=== PATIENT | female | born 1995 | race African-American/Black ===

== ENCOUNTER → 2021-02-20 | Outpatient (CLI) | payer OTHER ==
--- NOTE | 2021-02-20 16:52 | REP ---
INDICATION: LT BREAST PAIN,NIPPLE INVERSION, 7 WEEKS GESTATION. Three week history of left breast pain around the areola and occasional left breast nipple inversion. History of a normal previous ultrasound 2017. Negative clinician breast exam. COMPARISON: None. TECHNIQUE: Whole breast left sided sonography performed. FINDINGS: Heterogeneous fibroglandular background echotexture is seen. In the 10 o'clock position of the left breast, 4 cm from the nipple, there is a complex cystic area with overall dimensions of 1.7 x 0.7 x 0.9 cm. There is enhanced through transmission. No acoustic shadowing. No other significant sonographic finding. IMPRESSION: BI-RADS category 3 probably benign findings. Complex cystic lesion noted left breast 10 o'clock position 1.7 cm in greatest diameter. Recommend follow-up left breast sonography in 3-4 months. This patient's estimated Tyrer-Cuzick lifetime risk assessment for breast cancer is 12.1%. <Electronically signed by True Bruce > 02/20/21 [id number]
== END ==
LOC: M WHC 15:38
PROVIDERS: ATTEND Nurse Practitioner Primary Care
DX: N60.02 Solitary cyst of left breast (principal); Z3A.01 Less than 8 weeks gestation of pregnancy; N64.4 Mastodynia

== ENCOUNTER → 2021-07-07 | Outpatient (CLI) | payer OTHER ==
--- NOTE | 2021-07-07 13:50 | REP ---
INDICATION: 4 MON F/U LEFT BREAST. Previous ultrasound showed a 1.7 cm complex cystic area in the 10 o'clock position of the left breast, 4 cm from the nipple. Four month follow-up. Patient is 27 weeks gestation. COMPARISON: Comparison sonography February 20, 2021. TECHNIQUE: Targeted left breast ultrasound is repeated. FINDINGS: Mildly heterogeneous fibroglandular background echotexture is seen. The previously noted area is again seen slightly decreased in size, 1.4 x 0.8 x 1.4 cm. This is again noted to be located approximately 4 cm from the nipple. The area has a low elastography number, 17.4 K PA. IMPRESSION: Stable BI-RADS category 3 probably benign findings. Six-month follow-up sonography suggested. <Electronically signed by True Bruce > 07/07/21 [id number]
== END ==
LOC: M WHC 10:13
PROVIDERS: ATTEND Family Medicine
DX: N60.02 Solitary cyst of left breast (principal); Z3A.27 27 weeks gestation of pregnancy

== ENCOUNTER → 2021-08-22 | Outpatient (CLI) | payer OTHER ==
--- NOTE | 2021-08-22 15:52 | REP ---
INDICATION: PREG 32W4D, GROWTH - MORBID OBESITY COMPARISON: None. TECHNIQUE: Transabdominal obstetrical ultrasound with color Doppler evaluation. FINDINGS: Examination demonstrates a single live intrauterine in cephalic presentation. motion is identified by technologist. Placenta is noted posteriorly and grade 2 without evidence for placenta previa or abruption. Amniotic fluid volume is low normal range. Cervix appears closed. Selected gestational age: 33 weeks 5 days with MAEVE 10/05/2021. Gestational age by current measurements 33 weeks 0 days with MAEVE 10/10/2021. FHR equals 139 beats per minute. BPD: 8.2 cm at 32 weeks 5 days HC: 30.7 cm at 34 weeks 1 day AC: 29.3 cm at 33 weeks 2 days FL: 6.4 cm at 33 weeks 0 days HL: 5.5 cm at 32 weeks 0 days HC/AC: 1.05 Estimated weight 2148 grams (49thpercentile). ALIYA: 6.4 cm (8.2-24.7) Umbilical artery SD ratio: 3.89 (1.75-3.71) Limited anatomical assessment demonstrates no obvious abnormality. IMPRESSION: 1. Single live intrauterine in cephalic presentation demonstrating appropriate interval growth. 2. Amniotic fluid volume is below normal range and umbilical artery SD ratio mildly elevated. <Electronically signed by Doug Raines > 08/22/21 [id number]
== END ==
LOC: M RAD 10:23
PROVIDERS: ATTEND Advanced Practice Midwife
DX: O99.213 Obesity complicating pregnancy, third trimester (principal); Z3A.32 32 weeks gestation of pregnancy

== ENCOUNTER → 2021-08-25 | Outpatient (CLI) | payer OTHER ==
--- NOTE | 2021-08-25 18:00 | REP ---
INDICATION: MORBID OBESITY WITH REDNESS, PAIN, MILD HEAT COMPARISON: None. TECHNIQUE: Real time compression and duplex Doppler interrogation of the left lower extremity deep venous system is performed, including the right common femoral vein.Compression of the left peroneal and posterior tibial veins is performed. FINDINGS: The left common femoral, superficial femoral and popliteal veins are fully compressible with transducer pressure and demonstrate normal spontaneous and phasic flow, without evidence of deep venous thrombosis.The right common femoral vein demonstrates no thrombus.The visualized left peroneal and posterior tibial veins demonstrate no thrombus. IMPRESSION: No evidence of deep venous thrombosis of the left lower extremity femoral popliteal venous system.No thrombus in the visualized left peroneal and posterior tibial veins. <Electronically signed by Low Hanson > 08/25/21 [id number]
== END ==
LOC: M RAD 16:47
PROVIDERS: ATTEND Obstetrics & Gynecology
DX: Z34.83 Encounter for supervision of other normal pregnancy, third trimester (principal); R22.42 Localized swelling, mass and lump, left lower limb; M79.662 Pain in left lower leg

== ENCOUNTER 2021-10-06 03:58 | Inpatient (IN) | payer OTHER ==
[2021-10-06] VITALS (10 sets, daily range): BP systolic 110–142; BP diastolic 56–68
[~2021-10-06] VITALS: Ht 172.7 cm; Wt 133.9 kg
[2021-10-06] MEDS ORDERED: ceFAZolin SOD 2 GM in IV 1 EA IV STA (04:56)
[2021-10-06] MEDS ORDERED: LR 1,000 ML IV SCH ×9 (05:00→08:10)
[2021-10-06 05:45] LABS: HEMATOCRIT 38.6 % (36.0-47.0); MEAN CORPUSCULAR HEMOGLOBIN 27.5 pg (27.0-33.0); MEAN CORPUSCULAR HGB CONC 33.7 g/dl (32.0-36.5); MEAN CORPUSCULAR VOLUME 81.8 fl (80.0-96.0); PLATELET COUNT, AUTOMATED 200 10^3/uL (150-450); RED BLOOD COUNT 4.72 10^6/uL (4.00-5.40); WHITE BLOOD COUNT 12.4 10^3/uL (4.0-10.0)
[2021-10-06] MEDS ORDERED: OXYTOCIN 30 UNITS IN 0.9% NaCl 500ML IV BAG (J2590) As Ordered ONE ×2 (07:04→08:07)
[2021-10-06] MEDS ORDERED: DOCUSATE SODIUM 100MG CAPSULE PO PRN ×8 (08:10)
[2021-10-06] MEDS ORDERED: ACETAMINOPHEN 500 MG TAB PO SCH ×8 (08:10)
[2021-10-06] MEDS ORDERED: ONDANSETRON 4MG/2ML VIAL IV PRN ×8 (08:10)
[2021-10-06] MEDS ORDERED: PROMETHAZINE 25 MG TAB PO PRN ×8 (08:10)
[2021-10-06] MEDS ORDERED: OXYTOCIN DRIP 30 UNITS in IV 1 EA IV SCH ×32 (08:10)
[2021-10-06] MEDS ORDERED: RHOGAM 300 MCG (1500 IU) INJ (J2790) IM SCH ×8 (08:10)
[2021-10-06] MEDS ORDERED: MEASLES,MUMPS,RUBELLA VACCINE INJ (MMR-II) (90707) SC SCH ×8 (08:10)
[2021-10-06] MEDS ORDERED: DIBUCAINE 1% OINTMENT 30GM TOP PRN ×8 (08:10)
[2021-10-06] MEDS ORDERED: IBUPROFEN 800 MG TAB PO SCH ×8 (08:10)
[2021-10-06] MEDS ORDERED: KP F1200 PO (08:40)
[2021-10-06] MEDS ORDERED: ASPI81CH33 PO (08:40)
[2021-10-06] MEDS ORDERED: PREN1CHW6 PO (08:40)
[2021-10-06] MEDS ORDERED: HOME MED LIST COMPLETE! XX SCH (08:45)
[2021-10-06] MEDS ORDERED: PRENATAL VITAMINS CHEWABLE TABLET PO SCH ×7 (09:00)
[2021-10-06] MEDS: ACETAMINOPHEN 500 MG TAB PO SCH ×2 (11:56→18:00)
[2021-10-06] MEDS: PRENATAL VITAMINS CHEWABLE TABLET PO SCH (11:56)
[2021-10-06] MEDS ORDERED: ceFAZolin SOD 1 GM in D5W MINI-BAG PLUS 50 ML IV SCH (13:00)
[2021-10-06] MEDS: IBUPROFEN 800 MG TAB PO SCH ×2 (14:34→21:40)
[2021-10-07] MEDS: ACETAMINOPHEN 500 MG TAB PO SCH ×5 (00:42→23:43)
[2021-10-07] MEDS: IBUPROFEN 800 MG TAB PO SCH ×3 (05:58→22:10)
[2021-10-07 06:00] VITALS: BP 128/74
[2021-10-07 07:13] LABS: HEMATOCRIT 34.1 % (36.0-47.0); HEMOGLOBIN 11.3 g/dl (12.0-15.5); MEAN CORPUSCULAR HEMOGLOBIN 27.6 pg (27.0-33.0); MEAN CORPUSCULAR HGB CONC 33.1 g/dl (32.0-36.5); MEAN CORPUSCULAR VOLUME 83.4 fl (80.0-96.0); PLATELET COUNT, AUTOMATED 182 10^3/uL (150-450); RED BLOOD COUNT 4.09 10^6/uL (4.00-5.40); WHITE BLOOD COUNT 10.7 10^3/uL (4.0-10.0)
[2021-10-07] MEDS: PRENATAL VITAMINS CHEWABLE TABLET PO SCH (08:44)
[2021-10-07 18:03] VITALS: BP 138/70
[2021-10-08] MEDS: ACETAMINOPHEN 500 MG TAB PO SCH ×2 (05:56→13:10)
[2021-10-08] MEDS: IBUPROFEN 800 MG TAB PO SCH (05:56)
[2021-10-08 06:00] VITALS: BP 134/63
[2021-10-08] MEDS ORDERED: ACET-683 PO (07:07)
[2021-10-08] MEDS ORDERED: IBUP80TA PO (07:07)
[2021-10-08] MEDS ORDERED: DIBU28OI2 TOP (07:07)
[2021-10-08] MEDS: PRENATAL VITAMINS CHEWABLE TABLET PO SCH (09:35)
== END 2021-10-08 13:27 | disposition home or self-care (01) | DRG 807 ==
LOC: M LDO 03:58 → M LDI 05:20 → M OBS 13:42 → M PED 10-07 20:53
PROVIDERS: ADMIT Obstetrics & Gynecology; ATTEND Obstetrics & Gynecology
PROC: 10E0XZZ Delivery of Products of Conception, External Approach (ICD-10-PCS; principal; 2021-10-06)
DX: O48.0 Post-term pregnancy (principal); Z37.0 Single live birth; O99.824 Streptococcus B carrier state complicating childbirth; Z3A.40 40 weeks gestation of pregnancy; O34.211 Maternal care for low transverse scar from previous cesarean delivery; O69.82X0 Labor and delivery complicated by other cord entanglement, without compression, not applicable or unspecified

== ENCOUNTER → 2022-01-26 | Outpatient (CLI) | payer OTHER ==
[~2022-01-26] MED LIST: ACET-683 PO; ASPI81CH33 PO; DIBU28OI2 TOP; IBUP80TA PO; KP F1200 PO; PREN1CHW6 PO
== END ==
LOC: M WHC 01-09 10:33
PROVIDERS: ATTEND Family Medicine
DX: Z12.31 Encounter for screening mammogram for malignant neoplasm of breast (principal); N60.02 Solitary cyst of left breast

== ENCOUNTER → 2022-11-05 | Outpatient (CLI) | payer OTHER | LOC: M WHC 10:36 | PROVIDERS: ATTEND Family Medicine | DX: N60.02 Solitary cyst of left breast (principal) ==

== ENCOUNTER → 2023-03-23 | Outpatient (CLI) | payer OTHER | LOC: M SOG 08:05 | PROVIDERS: ATTEND Physician Assistant | DX: M25.531 Pain in right wrist (principal) ==